=== PATIENT | female | born 1995 | race American Indian/Alaskan Native ===

== ENCOUNTER 2017-04-03 20:47 | Emergency (ER) | payer OTHER ==
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
[2017-04-04] MEDS ORDERED: MOTRIN PO ONE (00:22)
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
[2017-04-04 03:59] VITALS: BP 142/85
== END 2017-04-04 03:58 | disposition home or self-care (01) ==
LOC: ED 20:47
DX: R68.84 Jaw pain (principal); R51 Headache; M54.2 Cervicalgia; V49.49XA Driver injured in collision with other motor vehicles in traffic accident, initial encounter; Y92.415 Exit ramp or entrance ramp of street or highway as the place of occurrence of the external cause; Y93.89 Activity, other specified; Y99.9 Unspecified external cause status
CPT/HCPCS: 70450; 70486; 72125; 81025

== ENCOUNTER 2017-07-31 18:43 | Emergency (ER) | payer SELFPAY | END 2017-07-31 20:57 | disposition left against medical advice (07) | LOC: ED 18:43 | DX: Z53.21 Procedure and treatment not carried out due to patient leaving prior to being seen by health care provider (principal) ==

== ENCOUNTER 2018-12-19 16:54 | Emergency (ER) | payer OTHER ==
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
[2018-12-19 18:06] LABS: Bacteria,Urine 1+ /HPF (Negative); Bilirubin,Urine NEG (Negative); Blood,Urine NEG (Negative); Color,Urine Straw (Yellow); Mucus,Urine FEW /HPF; Protein,Urine <15 mg/dL mg/dL (Negative); Urobilinogen,Urine < 2.0 mg/dL (<2.0)
[2018-12-19 18:09] LABS: HCG Qualitative,Urine Negative (Negative)
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
[2018-12-19] MEDS ORDERED: FLEXERIL PO ONE (18:54)
[2018-12-19] MEDS ORDERED: TORADOL IM ONE (18:54)
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
[2018-12-19] MEDS ORDERED: NACL 0.9% 1000 ML 1,000 ML IV ONE (19:46)
[2018-12-19 20:13] LABS: Basophils # (Auto) 0.1 K/mm3 (0.0-0.1); Basophils % (Auto) 0.7 % (0.0-1.8); Eosinophils # (Auto) 0.3 K/mm3 (0.0-0.4); Eosinophils % (Auto) 4.2 % (0.0-4.3); Hematocrit 35.5 % (30.3-42.9); Hemoglobin 12.1 gm/dl (10.1-14.3); Lymphocytes # (Auto) 3.2 K/mm3 (1.2-5.4); Lymphocytes % (Auto) 42.9 % (13.4-35.0); Mean Corpuscular HGB Conc 34 % (30-34); Mean Corpuscular Volume 76 fl (79-97); Monocytes # (Auto) 0.5 K/mm3 (0.0-0.8); Monocytes % (Auto) 6.7 % (0.0-7.3); Platelet Count 233 K/mm3 (140-440); Red Blood Count 4.67 M/mm3 (3.65-5.03); Red Cell Distribution Width 16.8 % (13.2-15.2)
[2018-12-19 20:27] LABS: BUN/Creatinine Ratio 16; Blood Urea Nitrogen 13 mg/dL (7-17); Calcium 8.8 mg/dL (8.4-10.2); Hemolysis Index 1
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
[2018-12-19 22:53] VITALS: BP 125/85
== END 2018-12-19 22:57 | disposition home or self-care (01) ==
LOC: ED 16:54
DX: M25.512 Pain in left shoulder (principal); M25.552 Pain in left hip; R03.0 Elevated blood-pressure reading, without diagnosis of hypertension; F12.10 Cannabis abuse, uncomplicated; V49.59XA Passenger injured in collision with other motor vehicles in traffic accident, initial encounter; Y93.89 Activity, other specified; Y92.89 Other specified places as the place of occurrence of the external cause; Y99.8 Other external cause status
CPT/HCPCS: 36415; 71275; 73030; 73502; 80048; 81001; 81025; 85025; 96372; 99285; J1885; J7030; Q9967

== ENCOUNTER 2022-03-26 14:32 | Emergency (ER) | payer SELFPAY | END 2022-03-27 09:56 | disposition left against medical advice (07) | LOC: ED 14:32 | DX: R10.9 Unspecified abdominal pain (principal); Z53.21 Procedure and treatment not carried out due to patient leaving prior to being seen by health care provider ==